=== PATIENT | female | born 1995 | race Caucasian/White ===

== ENCOUNTER 2020-06-23 15:15 | Emergency (ER) | payer BC, OTHER ==
[~2020-06-23] VITALS: Ht 154.9 cm; Wt 49.9 kg
--- NOTE | 2020-06-23 15:41 | NUR ---
The patient came to the emergency department with her father; with a chief complaint of cough and congestion x7 days; with on and off fever and chills. The patient states that she got tested for Covid last Monday, and until now she has no results yet. The patient thinks that she may have Covid. The patient states that her father got tested for Covid last and the results were positive and he got started on Z-Alireza by his primary care physician. The patient presents to ER for evaluation treatment of possible Covid infection.
--- NOTE | 2020-06-23 16:27 | NUR ---
Covid swab, PCR, sent to the lab
[2020-06-23 16:52] VITALS: BP 107/70
--- NOTE | 2020-06-23 16:52 | NUR ---
Patient discharged to home in stable condition. Written and verbal after care instructions given. Patient verbalizes understanding of instruction.
== END 2020-06-23 16:52 | disposition home or self-care (01) ==
LOC: ER 15:17
DX: U07.1 COVID-19 (principal)
CPT/HCPCS: 99283; C9803; U0003

== ENCOUNTER 2020-06-28 16:08 | Emergency (ER) | payer OTHER ==
[~2020-06-28] VITALS: Ht 154.9 cm; Wt 59.0 kg
--- NOTE | 2020-06-28 16:58 | NUR ---
davon pisano at bedside for eval.
--- NOTE | 2020-06-28 18:07 | NUR ---
Patient a/ox4, breathing even and unlabored, no sob noted, needs attended. Patient discharged to home in stable condition. Written and verbal after care instructions given. Patient verbalizes understanding of instruction.
[2020-06-28 18:58] VITALS: BP 113/67
== END 2020-06-28 18:58 | disposition home or self-care (01) ==
LOC: ER 16:15
DX: U07.1 COVID-19 (principal)
CPT/HCPCS: 71045-TC

== ENCOUNTER 2020-06-30 15:32 | Emergency (ER) | payer OTHER ==
[~2020-06-30] VITALS: Ht 154.9 cm; Wt 59.0 kg
[2020-06-30 16:07] VITALS: BP 111/87
[2020-06-30 16:22] LABS: BILIRUBIN,URINE Negative (NEGATIVE); COLOR,URINE YELLOW (YELLOW); LEUKOCYTE ESTERASE ,URINE Trace (NEGATIVE); NITRITE, URINE Negative (NEGATIVE); PROTEIN,URINE Negative (NEGATIVE); UGLUCOSE Negative (NEGATIVE); UROBILINOGEN,URINE 0.2 EU/dL (0.2)
[2020-06-30 16:33] LABS: BACTERIA,URINE Few /HPF (None Seen); SQUAMOUS EPITHELIAL CELL,UR Few /HPF (None Seen)
== END 2020-06-30 16:59 | disposition home or self-care (01) ==
LOC: ER 15:35
DX: U07.1 COVID-19 (principal)
CPT/HCPCS: 81001; 84703-TC